=== PATIENT | male | born 1990 | race Hispanic/Latino ===

== ENCOUNTER 2016-12-13 05:30 | Emergency (ER) | payer SELFPAY ==
[2016-12-13] MEDS ORDERED: Ketorolac Tromethamine 60 MG/2 ML VIAL ONE (06:31)
== END 2016-12-13 06:35 | disposition home or self-care (01) ==
LOC: ERS 05:30
DX: M54.5 Low back pain (principal); F17.210 Nicotine dependence, cigarettes, uncomplicated
CPT/HCPCS: 99283; J1885

== ENCOUNTER 2017-01-25 09:21 | Day surgery (SDC) | payer SELFPAY ==
[2017-01-25 10:45] LABS: #Basophils 0.1 thou/uL (0.0-0.2); #Lymphocytes 1.5 thou/uL (1.20-3.40); #Monocytes 0.5 thou/uL (0.11-0.59); #Neutrophils 6.4 thou/uL (1.40-6.50); %Basophils 0.7 % (0.0-1.0); %Eosinophils 0.2 % (0.0-10.0); %Lymphocytes 17.6 % (21.0-51.0); %Monocytes 6.1 % (0.0-10.0); Hematocrit 44.6 % (42.0-52.0); Mean Platelet Volume 8.4 fL (7.4-10.4); Red Blood Cell (RBC) Count 4.64 mill/uL (4.70-6.10); White Blood Cell (WBC) Count 8.5 thou/uL (4.8-10.8)
[2017-01-25 10:56] LABS: ALT (SGPT) 47 U/L (8-55); AST (SGOT) 21 U/L (5-34); Alkaline Phosphatase 66 U/L (40-150); Anion Gap 10 mmol/L (10-20); BUN (Urea Nitrogen) 14 mg/dL (8.9-20.6); Bilirubin, Total 0.4 mg/dL (0.2-1.2); Calc. Creatinine Clearance 0 mL/min (70-130); Calcium 9.2 mg/dL (7.8-10.44); Carbon Dioxide 29 mmol/L (22-29); Chloride 104 mmol/L (98-107); Estimated GFR-MDRD Greater than 90; Protein, Total 7.5 g/dL (6.0-8.3)
[2017-01-25 11:51] LABS: Bilirubin Negative (Negative); Blood, Urine Negative (Negative); Glucose, Urine (Dipstick) Negative (Negative); Ketone, Urine Negative (Negative); Nitrite Negative (Negative); Protein, Urine (Dipstick) Negative (Neg-Trace); Urobilinogen 0.2 mg/dL (0.2-1.0)
--- NOTE | 2017-01-25 12:23 | ULT ---
TUBERCULOSIS ULTRASOUND: HISTORY: A 26-year-old male with right upper quadrant and right flank pain. The gallbladder appears to be moderately distended with some diffuse echogenic material, evidence for extensive sludge. There is a 1.6 cm diameter calcific focus with shadowing which appears to be at o r within the neck of the gallbladder consistent with an obstructing calculus. Common bile duct is 0. 5 cm. There is no overt gallbladder wall thickening or pericholecystic fluid. The visualized liver, pancreas, and right kidney are unremarkable. IMPRESSION: Distention of the gallbladder with extensive debris throughout the gallbladder with a 1.6 cm diameter calcific focus in the region of the neck of the gallbladder casting a prominent shadow, evidence for a stone in the neck of the gallbladder. The technologist indicates positive Contreras's sign. Even th ough there is no significant gallbladder wall thickening or pericholecystic fluid, the distention of the gallbladder along with a positive Contreras's sign and stone in the neck of the gallbladder certainl y are concerning for acute cholecystitis. Consideration for a followup nuclear medicine hepatobiliar y scan for confirmation in that regard might be considered. No ductal dilatation. Findings were discussed with Dr. Atkins in the ER at 11:50 a.m. CODE CR POS: [facility]
--- NOTE | 2017-01-25 14:21 | RAD ---
PORTABLE UPRIGHT CHEST ONE VIEW: History: 26-year-old male with abdominal pain and right flank pain. FINDINGS: The heart size is normal. The lungs are clear. IMPRESSION: No acute intrathoracic disease. No evidence of pneumonia. Stable from prior study. POS: [facility]
[2017-01-25] MEDS ORDERED: Morphine 4 MG/ML VIAL ONE (15:14)
[2017-01-25] MEDS ORDERED: Ketorolac Tromethamine 30 MG/ML VIAL ONE (16:41)
[2017-01-25] MEDS ORDERED: Fentanyl 250 MCG/5 ML VIAL ONE (16:53)
[2017-01-25] MEDS ORDERED: Midazolam HCl 2 mg/2 ml Vial ONE (16:53)
[2017-01-25] MEDS ORDERED: Bupivacaine/Epinephrine 0.25% 30 ML VIAL ONE (16:57)
[2017-01-25] MEDS ORDERED: cefOXitin Sodium 2 GM, Syringe 1 ML in Sterile Water 10 ML SLOW IVP SCH (17:00)
[2017-01-25] MEDS ORDERED: Lidocaine 1% PF 5 ML VIAL ONE (17:27)
[2017-01-25] MEDS ORDERED: Ondansetron HCl/PF 4 MG/2 ML Vial ONE (17:27)
[2017-01-25] MEDS ORDERED: Glycopyrrolate 0.2 MG/ML 5 ML SYRINGE ONE (17:27)
[2017-01-25] MEDS ORDERED: Propofol 200 MG/20 ML VIAL ONE (17:27)
[2017-01-25] MEDS ORDERED: HYDROcodone/Acetaminophen 5/325 mg Tablet ONE (19:26)
--- NOTE | 2017-01-25 22:46 | HP ---
DATE: 01/25/2017 CHIEF COMPLAINT: Right upper quadrant pain. HISTORY OF PRESENT ILLNESS: This is a 26-year-old male who presents with a several month hi story of intermittent severe right upper quadrant pain mostly after heavy greasy fatty fried foods. The pain has become more severe and constant, seen in the emergency room where he was found to have a cute cholecystitis. Liver function tests are normal. Denies jaundice or pancreatitis. PAST MEDICAL HISTORY: Denies. PAST SURGICAL HISTORY: Denies. MEDICINES TAKEN DAILY: None. ALLERGIES: None. SOCIAL HISTORY: He smokes occasionally. No alcohol. REVIEW OF SYSTEMS: Ten system review of systems otherwise negative unless described above. PHYSICAL EXAMINATION: HEENT: Sclerae are anicteric. Oropharynx clear. NECK: No lymphadenopathy. CHEST: Clear. HEART: Regular rate and rhythm. ABDOMEN: Soft, tender right upper quadrant, localized guarding, no rebound, no abdominal or inguinal hernias. EXTREMITIES: No ischemia or edema to extremities. LABORATORY AND X-RAY FINDINGS: Liver function tests normal. White blood cell count is 8, hemoglobin 15, creatinine is 0.93. Ultrasound shows mild gallbladder wall thickening and gallstones. ASSESSMENT: Acute cholecystitis. PLAN: Laparoscopic cholecystectomy. Risks, benefits, alternatives discussed. He gives consent. We will do this today.
--- NOTE | 2017-01-26 01:14 | OP ---
DATE OF PROCEDURE: 01/25/2017 PREOPERATIVE DIAGNOSIS: Acute cholecystitis. POSTOPERATIVE DIAGNOSIS: Acute cholecystitis. PROCEDURE: Laparoscopic cholecystectomy. SURGEON: Tomás Jacobson M.D. ANESTHESIA: General. ESTIMATED BLOOD LOSS: Minimal. COMPLICATIONS: None. SPECIMEN: Gallbladder. FINDINGS: Cholecystitis. PROCEDURE IN DETAIL: The patient was taken to the Operating Room and laid supine on the Operating Ro om table. After general anesthetic was obtained, the abdomen was prepped and draped in a sterile fas hion. A curved incision was made below the umbilicus. Cautery was used to dissect down to the umbil ical fascia. Umbilical fascia was incised and held up using a Maximilian. The abdominal cavity was ente red using a Keely clamp. Holding stitch of Vicryl was placed on each side of the fascia. Romero tro car was placed. High-flow pneumoperitoneum was obtained. An upper midline 5-mm port and two right u pper quadrant 5-mm ports were placed under direct camera visualization. The gallbladder was retracte d from the gallbladder fossa. The peritoneum of the gallbladder was opened anteriorly and posteriorl y. The critical view triangle was seen showing only the cystic duct and cystic artery branching from medial to lateral. There were no other branching structures. Two clips were placed proximally on t he cystic duct and one laterally. It was cut using laparoscopic scissors. The cystic artery was jhony en in the same way. Electrocautery was then used to dissect the gallbladder out of the gallbladder f stanislav. The gallbladder was placed in an Endo catch bag and brought out through the Romero. There was no bleeding or bile in the liver bed. The cystic duct stump and cystic artery stump were intact wit hout evidence of extravasation or bleeding. All port sites were infiltrated using local anesthesia. All ports were removed under camera visualization. Pneumoperitoneum was let down. The Vicryl was u sed to close the fascial defect below the umbilicus. All incisions were irrigated and closed using 4 -0 Monocryl and DermaBond. The patient was en route to Recovery in stable condition. All instrument counts, needle counts and lap counts were correct.
== END 2017-01-25 19:48 | disposition home or self-care (01) ==
LOC: ERS 09:21 → SDC 15:50
PROVIDERS: ATTEND Surgery
PROC: 0FT44ZZ Resection of Gallbladder, Percutaneous Endoscopic Approach (ICD-10-PCS; principal; 2017-01-25)
DX: K80.12 Calculus of gallbladder with acute and chronic cholecystitis without obstruction (principal); F17.200 Nicotine dependence, unspecified, uncomplicated
CPT/HCPCS: 36415; 71010; 76705; 80053; 81003; 85025; 88304; 93005; 96361; 96374; 99406; A4216; J0131; J0694; J1885; J2001; J2250; J2270; J2405; J2704; J3010

== ENCOUNTER 2017-03-01 15:40 | Emergency (ER) | payer SELFPAY ==
[2017-03-01] MEDS ORDERED: Acetaminophen 500 MG TAB ONE (17:41)
[2017-03-01] MEDS ORDERED: Ondansetron ODT 4 MG TAB ONE (18:37)
== END 2017-03-01 19:13 | disposition home or self-care (01) ==
LOC: ERS 15:40
DX: J11.1 Influenza due to unidentified influenza virus with other respiratory manifestations (principal)
CPT/HCPCS: 99283; Q0162

== ENCOUNTER 2017-03-05 16:27 | Emergency (ER) | payer SELFPAY ==
[2017-03-05] MEDS ORDERED: Lidocaine 1% PF 5 ML VIAL ONE (17:05)
[2017-03-05] MEDS ORDERED: Azithromycin 250 MG TAB ONE (17:05)
[2017-03-05] MEDS ORDERED: cefTRIAXone\\ROCEPHIN 500 MG VIAL ONE (17:05)
--- NOTE | 2017-03-05 17:30 | RAD ---
PA AND LATERAL OF THE CHEST: INDICATION: Cough and fever. FINDINGS: There are patchy opacities within the lingula and right upper lobe suspicious for focal pneumonia. C holecystectomy clips are seen within the right upper quadrant. The cardiomediastinal silhouette is w ithin normal limits. IMPRESSION: Patchy opacities within the region of the lingula and right upper lobe suspicious for pneumonia. POS: [facility]
== END 2017-03-05 19:00 | disposition home or self-care (01) ==
LOC: ERS 16:27
DX: J18.9 Pneumonia, unspecified organism (principal)
CPT/HCPCS: 71020; 94640; 96372; J0696; J2001; J7620

== ENCOUNTER 2017-03-07 11:45 | Emergency (ER) | payer SELFPAY ==
--- NOTE | 2017-03-07 15:13 | RAD ---
PA AND ALTERAL VIEWS CHEST: HISTORY: Cough, pneumonia. FINDINGS: Comparison is made with the exam of 03/05/17. Patchy opacities in the lingula are again seen. There is increased prominence of the interstitial ma rkings. No pneumothoraces or pleural effusions are seen. POS: [facility]
== END 2017-03-07 14:15 | disposition home or self-care (01) ==
LOC: ERS 11:45
DX: J18.9 Pneumonia, unspecified organism (principal)
CPT/HCPCS: 71046

== ENCOUNTER 2017-03-09 09:13 | Emergency (ER) | payer SELFPAY | END 2017-03-09 10:05 | disposition home or self-care (01) | LOC: ERS 09:13 | DX: Z00.00 Encounter for general adult medical examination without abnormal findings (principal) | CPT/HCPCS: 99283 ==

== ENCOUNTER 2017-08-25 08:04 | Inpatient (IN) | payer OTHER, SELFPAY ==
[2017-08-25] MEDS ORDERED: Fentanyl 100 MCG/2 ML VIAL ONE ×6 (08:12→15:26)
[2017-08-25] MEDS ORDERED: CEFAZOLIN 1 GM VIAL ONE (08:12)
[2017-08-25] MEDS ORDERED: Adacel (T-DAP) 0.5 ML VIAL ONE (08:12)
[2017-08-25 08:45] LABS: #Basophils 0.1 thou/uL (0.0-0.2); #Lymphocytes 2.2 thou/uL (1.20-3.40); #Monocytes 0.9 thou/uL (0.11-0.59); #Neutrophils 14.1 thou/uL (1.40-6.50); %Basophils 0.3 % (0.0-1.0); %Eosinophils 0.2 % (0.0-10.0); %Lymphocytes 12.6 % (21.0-51.0); %Monocytes 5.2 % (0.0-10.0); %Neutrophils 81.6 % (42.0-75.0); Hemoglobin 14.5 g/dL (14.0-18.0); Mean Corpuscular HGB CONC 34.4 g/dL (32.0-36.0); Mean Corpuscular Hemoglobin 31.9 pg (27.0-31.0); Mean Corpuscular Volume 92.9 fL (78.0-98.0); Mean Platelet Volume 8.6 fL (7.4-10.4); Platelet Count 253 thou/uL (130-400); RBC Distribution Width 11.6 % (11.5-14.5); Red Blood Cell (RBC) Count 4.54 mill/uL (4.70-6.10); White Blood Cell (WBC) Count 17.3 thou/uL (4.8-10.8)
[2017-08-25 08:56] LABS: ALT (SGPT) 103 U/L (8-55); AST (SGOT) 96 U/L (5-34); Albumin 4.3 g/dL (3.5-5.0); Alkaline Phosphatase 69 U/L (40-150); Anion Gap 14 mmol/L (10-20); BUN (Urea Nitrogen) 11 mg/dL (8.9-20.6); Bilirubin, Total 0.8 mg/dL (0.2-1.2); Calc. Creatinine Clearance 0 mL/min (70-130); Carbon Dioxide 20 mmol/L (22-29); Chloride 108 mmol/L (98-107); Estimated GFR-MDRD 81; Globulin 2.7 g/dL (2.4-3.5); Glucose 177 mg/dL (70-105); Potassium 3.8 mmol/L (3.5-5.1); Sodium 138 mmol/L (136-145)
[2017-08-25 09:00] LABS: Troponin I Less than 0.010 ng/mL (< 0.028)
[2017-08-25] MEDS ORDERED: Lidocaine 1% w/Epinephrine 1:100K 20 ML VIAL ONE (09:00)
[2017-08-25] MEDS ORDERED: CEFAZOLIN/Water 2 GM/20 ML SYRINGE SLOW IVP SCH (09:15)
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
--- NOTE | 2017-08-25 09:41 | RAD ---
FRONTAL AND LATERAL IMAGING OF LEFT TIBIA AND FIBULA: Date: 08/25/17 COMPARISON: None. HISTORY: Pain. FINDINGS: There is an obliquely oriented fracture of the proximal left tibia laterally which extends into the r egion of the tibial plateau. This is incompletely assessed on this examination. Dedicated imaging of the left knee advised. IMPRESSION: Intraarticular fracture of proximal left tibia extending into the midline tibial plateau. Dedicated r ight knee imaging advised. POS: [facility]
[2017-08-25 09:53] LABS: Bilirubin Negative (Negative); Blood, Urine Large (Negative); Clarity CLEAR (Clear); Glucose, Urine (Dipstick) 250 mg/dL (Negative); Leukocyte Negative (Negative); Nitrite Negative (Negative); Protein, Urine (Dipstick) 30 mg/dL (Neg-Trace)
[2017-08-25 09:55] LABS: Bacteria/HPF None Seen HPF (None Seen)
[2017-08-25 09:58] LABS: Pathc Cast-AUWi Flag 9.15 (0-2.49); Specific Gravity, Urine 1.057 (1.002-1.036)
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
--- NOTE | 2017-08-25 10:11 | RAD ---
LEFT FEMUR TWO VIEWS: HISTORY: Left thigh pain and deformity. FINDINGS: There is a fracture involving the mid shaft of the left femur with a large, 10 cm fracture fragment, displaced medially. There is also a comminuted fracture involving the distal aspect of the femur, wi th involvement of the lateral condyles. This demonstrates mild displacement. POS: [facility]
[2017-08-25 10:14] LABS: Manual Microscopic Reviewed? No Path Casts Seen; Renal Epithelial None Seen HPF (0-3); Transitional Epithelial NONE SEEN HPF (0-3)
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
[2017-08-25 10:32] LABS: Hyaline Casts/LPF 0-3 HYALINE CAST LPF (0-3 Hyaline)
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
[2017-08-25] MEDS ORDERED: Dextrose 5% in Water 1,000 ML IV PRN (10:48)
[2017-08-25] MEDS ORDERED: hydrALAZINE 20 MG/ML VIAL SLOW IVP PRN (10:48)
[2017-08-25] MEDS ORDERED: Ondansetron HCl/PF 4 MG/2 ML Vial IVP PRN ×2 (10:48→16:52)
[2017-08-25] MEDS ORDERED: HYDROcodone/Acetaminophen 10/325 mg Tablet PO PRN ×2 (10:48)
[2017-08-25] MEDS ORDERED: Promethazine HCl 25 MG/ML VIAL IM PRN ×3 (10:48→16:52)
[2017-08-25] MEDS ORDERED: Ondansetron ODT 4 MG TAB PO PRN (10:48)
[2017-08-25] MEDS ORDERED: Dextrose 50% Abboject 50 ML SYRINGE SLOW IVP PRN (10:48)
--- NOTE | 2017-08-25 10:48 | CT ---
CT CHEST WITH IV CONTRAST: CT ABDOMEN WITH IV CONTRAST: CT PELVIS WITH IV CONTRAST: CORONAL AND SAGITTAL REFORMATIONS OF THE THORACOLUMBAR SPINE: FINDINGS: No evidence of mediastinal hematoma or intimal flap in the aorta is seen to suggest transection. No pneumothoraces, pulmonary contusions, or pleural or pericardial effusions are seen. There are depend ent changes in the posterior lung bases. There are postop changes of a cholecystectomy. A small hiatal hernia is present. The liver, spleen, pancreas, left adrenal glands, and kidneys are intact. There is a small contusion with a small amou nt of hemorrhage surrounding the right adrenal gland and IVC. No free air is noted. The urinary bladder is intact. A small left fat-containing inguinal hernia is present. No fracture or subluxation is seen in the thoracolumbar spine. IMPRESSION: 1. No CT evidence of acute intrathoracic injury. 2. Small right adrenal contusion. Report was called over the telephone to Dr. Murillo at 9:16 a.m. CODE NISHA POS: [facility]
[2017-08-25] MEDS ORDERED: Bacitracin Zinc 1 Packet TOP SCH (11:45)
[2017-08-25] MEDS ORDERED: Midazolam HCl 2 mg/2 ml Vial ONE (11:52)
[2017-08-25] MEDS ORDERED: CEFAZOLIN/Water 2 GM/20 ML SYRINGE ONE (12:24)
[2017-08-25] MEDS ORDERED: HYDROmorphone 0.5 MG/0.5 ML SYRINGE ONE (15:27)
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
[2017-08-25] MEDS ORDERED: Bacitracin Zinc Ointment 30 gm TUBE ONE (16:14)
[2017-08-25] MEDS ORDERED: SUGAMMADEX SODIUM 200 MG/2 ML VIAL ONE (16:29)
--- NOTE | 2017-08-25 16:33 | RAD ---
LEFT FEMUR 2 VIEWS: Date: 08/25/17 HISTORY: Intramedullary nail left femur. Open reduction and internal fixation. COMPARISON: None. FINDINGS: There is satisfactory appearance of left plate and screw fixation of the femoral fracture. IMPRESSION: Satisfactory alignment post fixation. POS: REENA
[2017-08-25] MEDS ORDERED: Meperidine HCl/PF 25 MG/ML VIAL ONE (16:35)
--- NOTE | 2017-08-25 16:35 | RAD ---
2 INTRAOPERATIVE FLUOROSCOPIC IMAGES LEFT KNEE: Date: 08/25/17 HISTORY: Intramedullary nail left tibia. Internal fixation left knee. FINDINGS: There is partial visualization of a lateral plate and multiple screws transfixing the fracture of the distal femur. There is a lateral plate and multiple screws transfixing the fracture involving the pr oximal left tibia. No hardware complication is seen. IMPRESSION: Postsurgical changes related to internal fixation of the distal femur and proximal tibia. Postsurgica l changes of the femur are incompletely imaged on this exam. POS: REENA
[2017-08-25] MEDS ORDERED: Promethazine HCl 25 MG/ML VIAL SLOW IVP PRN (16:52)
[2017-08-25] MEDS ORDERED: Meperidine HCl/PF 25 MG/ML VIAL SLOW IVP PRN (16:52)
[2017-08-25] MEDS: Acetaminophen 1,000 MG in Premix Bag 1 BAG IVPB SCH ×3 (18:44→23:50)
[2017-08-25] MEDS: Ketorolac Tromethamine 30 MG/ML VIAL IVP SCH ×4 (18:45→23:50)
[2017-08-25] MEDS: Sodium Chloride 0.9% 1,000 ML IV SCH ×2 (18:48→22:03)
[2017-08-25] MEDS: Oxazepam 10 MG CAP PO SCH ×2 (18:59→22:04)
[2017-08-25] MEDS: Famotidine 20 MG TAB PO SCH (20:02)
[2017-08-25] MEDS: CEFAZOLIN/Water 2 GM/20 ML SYRINGE SLOW IVP SCH (22:05)
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
[2017-08-26] MEDS ORDERED: Rib Fracture Protocol PO SCH (02:30)
[2017-08-26] MEDS: Cyclobenzaprine 10 MG TAB PO PRN (02:44)
[2017-08-26] MEDS: Sodium Chloride 0.9% 1,000 ML IV SCH (03:45)
[2017-08-26 05:35] LABS: Anion Gap 12 mmol/L (10-20); BUN (Urea Nitrogen) 10 mg/dL (8.9-20.6); Calc. Creatinine Clearance 0 mL/min (70-130); Calcium 7.7 mg/dL (7.8-10.44); Carbon Dioxide 22 mmol/L (22-29); Chloride 108 mmol/L (98-107); Estimated GFR-MDRD Greater than 90; Glucose 143 mg/dL (70-105); Magnesium 1.5 mg/dL (1.6-2.6); Phosphorus 2.6 mg/dL (2.3-4.7); Potassium 4.1 mmol/L (3.5-5.1); Sodium 138 mmol/L (136-145)
[2017-08-26] MEDS: CEFAZOLIN/Water 2 GM/20 ML SYRINGE SLOW IVP SCH (05:59)
[2017-08-26] MEDS: traMADol HCl 50 MG TAB PO SCH ×3 (06:00→18:22)
[2017-08-26] MEDS: Acetaminophen 500 MG TAB PO SCH ×3 (06:00→18:22)
[2017-08-26] MEDS: Ibuprofen 800 MG TAB PO SCH ×3 (06:00→18:22)
[2017-08-26 06:01] LABS: #Lymphocytes 1.2 thou/uL (1.20-3.40); #Monocytes 1.1 thou/uL (0.11-0.59); #Neutrophils 6.8 thou/uL (1.40-6.50); %Basophils 0.3 % (0.0-1.0); %Eosinophils 0.2 % (0.0-10.0); %Lymphocytes 13.1 % (21.0-51.0); %Monocytes 11.9 % (0.0-10.0); %Neutrophils 74.6 % (42.0-75.0); Hemoglobin 9.3 g/dL (14.0-18.0); Mean Corpuscular HGB CONC 34.1 g/dL (32.0-36.0); Mean Corpuscular Volume 93.8 fL (78.0-98.0); Mean Platelet Volume 9.1 fL (7.4-10.4); Platelet Count 155 thou/uL (130-400); RBC Distribution Width 11.7 % (11.5-14.5); Red Blood Cell (RBC) Count 2.92 mill/uL (4.70-6.10); White Blood Cell (WBC) Count 9.2 thou/uL (4.8-10.8)
[2017-08-26] MEDS: Oxazepam 10 MG CAP PO SCH ×3 (09:24→21:49)
[2017-08-26] MEDS: Gabapentin 300 MG CAP PO SCH ×3 (09:24→21:49)
[2017-08-26] MEDS: Enoxaparin Sodium 40 MG/0.4 ML SYRINGE SC SCH (09:24)
[2017-08-26] MEDS: Famotidine 20 MG TAB PO SCH ×2 (09:25→21:49)
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
[2017-08-26 12:48] VITALS: BMI 38.0
[2017-08-26] MEDS: Ferrous Sulfate 325 MG TAB PO SCH (18:22)
[2017-08-26] MEDS: Senokot S 8.6-50 MG TAB PO SCH (21:49)
[2017-08-26] MEDS: Ascorbic Acid 500 mg Chewable Tablet PO SCH (21:50)
[2017-08-27] MEDS: traMADol HCl 50 MG TAB PO SCH ×2 (00:06→05:32)
[2017-08-27] MEDS: Acetaminophen 500 MG TAB PO SCH ×2 (00:06→05:31)
[2017-08-27] MEDS: Ibuprofen 800 MG TAB PO SCH ×3 (00:06→11:53)
[2017-08-27 04:55] LABS: #Lymphocytes 1.5 thou/uL (1.20-3.40); #Monocytes 0.8 thou/uL (0.11-0.59); #Neutrophils 5.2 thou/uL (1.40-6.50); %Basophils 0.2 % (0.0-1.0); %Eosinophils 0.1 % (0.0-10.0); %Lymphocytes 20.1 % (21.0-51.0); %Monocytes 10.6 % (0.0-10.0); Hemoglobin 7.9 g/dL (14.0-18.0); Mean Corpuscular HGB CONC 34.8 g/dL (32.0-36.0); Mean Corpuscular Hemoglobin 32.5 pg (27.0-31.0); Mean Corpuscular Volume 93.3 fL (78.0-98.0); Mean Platelet Volume 8.6 fL (7.4-10.4); Platelet Count 146 thou/uL (130-400); RBC Distribution Width 11.8 % (11.5-14.5); Red Blood Cell (RBC) Count 2.44 mill/uL (4.70-6.10); White Blood Cell (WBC) Count 7.6 thou/uL (4.8-10.8)
[2017-08-27 05:44] LABS: Magnesium 1.9 mg/dL (1.6-2.6); Phosphorus 1.8 mg/dL (2.3-4.7)
[2017-08-27 06:09] LABS: Potassium 3.6 mmol/L (3.5-5.1)
[2017-08-27] MEDS ORDERED: Potassium Phosphate 30 MMOL in Sodium Chloride 0.9% 500 ML IVPB SCH (08:15)
[2017-08-27] MEDS: Enoxaparin Sodium 40 MG/0.4 ML SYRINGE SC SCH (08:44)
[2017-08-27] MEDS: Ascorbic Acid 500 mg Chewable Tablet PO SCH (08:45)
[2017-08-27] MEDS: Famotidine 20 MG TAB PO SCH (08:45)
[2017-08-27] MEDS: Senokot S 8.6-50 MG TAB PO SCH (08:45)
[2017-08-27] MEDS: Ferrous Sulfate 325 MG TAB PO SCH (08:46)
[2017-08-27] MEDS: Oxazepam 10 MG CAP PO SCH ×2 (08:46→16:30)
[2017-08-27] MEDS: Gabapentin 300 MG CAP PO SCH ×2 (08:47→16:29)
[2017-08-27] MEDS ORDERED: Acetaminophen/Codeine 30-300mg Tablet PO PRN ×2 (08:58→08:59)
[2017-08-27] MEDS ORDERED: Polyethylene Glycol 3350 17 GM Packet PO SCH (09:00)
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
[2017-08-27 11:08] VITALS: BP 127/85; TEMP 98.1
[2017-08-27] MEDS: Cyclobenzaprine 10 MG TAB PO PRN (11:53)
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
== END 2017-08-27 15:09 | disposition home or self-care (01) | DRG 956 ==
LOC: ERS 08:04 → SURG B 09:07
PROVIDERS: ADMIT Surgery; ATTEND Surgery
PROC: 0QS904Z Reposition Left Femoral Shaft with Internal Fixation Device, Open Approach (ICD-10-PCS; principal; 2017-08-25)
PROC: 0QSH04Z Reposition Left Tibia with Internal Fixation Device, Open Approach (ICD-10-PCS; 2017-08-25)
PROC: 0QSC04Z Reposition Left Lower Femur with Internal Fixation Device, Open Approach (ICD-10-PCS; 2017-08-25)
PROC: 09Q1XZZ Repair Left External Ear, External Approach (ICD-10-PCS; 2017-08-25)
DX: S72.302A Unspecified fracture of shaft of left femur, initial encounter for closed fracture (principal); S37.812A Contusion of adrenal gland, initial encounter; S06.0X9A Concussion with loss of consciousness of unspecified duration, initial encounter; S82.142A Displaced bicondylar fracture of left tibia, initial encounter for closed fracture; S72.412A Displaced unspecified condyle fracture of lower end of left femur, initial encounter for closed fracture; V43.62XA Car passenger injured in collision with other type car in traffic accident, initial encounter; Y92.410 Unspecified street and highway as the place of occurrence of the external cause; D50.0 Iron deficiency anemia secondary to blood loss (chronic); S01.312A Laceration without foreign body of left ear, initial encounter
CPT/HCPCS: 12015; 36415; 51702; 70450; 71260; 72125; 74177; 76001; 80048; 80053; 81003; 81015; 82553; 83735; 84100; 84132; 84484; 85025; 86850; 86900; 86901; 90471; 90715; 94640; 96365; 96374; C1713; C1769; G0390; G8978-GP-CL; G8979-GP-CJ; G8987-GO-CJ; G8988-GO-CI; J0131; J0690; J1170; J1650; J1885; J2001; J2175; J2250; J3010; J7050; J7620

== ENCOUNTER 2017-08-30 11:24 | Emergency (ER) | payer OTHER, SELFPAY ==
[2017-08-30 12:45] LABS: #Basophils 0.1 thou/uL (0.0-0.2); #Eosinphils 0.1 thou/uL (0.0-0.7); #Monocytes 0.5 thou/uL (0.11-0.59); #Neutrophils 5.5 thou/uL (1.40-6.50); %Basophils 1.1 % (0.0-1.0); %Eosinophils 0.8 % (0.0-10.0); %Lymphocytes 24.8 % (21.0-51.0); %Neutrophils 67.2 % (42.0-75.0); Hemoglobin 8.8 g/dL (14.0-18.0); Mean Corpuscular HGB CONC 35.3 g/dL (32.0-36.0); Mean Corpuscular Hemoglobin 32.6 pg (27.0-31.0); Mean Corpuscular Volume 92.3 fL (78.0-98.0); Mean Platelet Volume 7.6 fL (7.4-10.4); Platelet Count 308 thou/uL (130-400); RBC Distribution Width 12.4 % (11.5-14.5); Red Blood Cell (RBC) Count 2.69 mill/uL (4.70-6.10); White Blood Cell (WBC) Count 8.1 thou/uL (4.8-10.8)
[2017-08-30 13:04] LABS: ALT (SGPT) 193 U/L (8-55); AST (SGOT) 151 U/L (5-34); Alkaline Phosphatase 107 U/L (40-150); Anion Gap 15 mmol/L (10-20); BUN (Urea Nitrogen) 12 mg/dL (8.9-20.6); Bilirubin, Total 1.8 mg/dL (0.2-1.2); Calc. Creatinine Clearance 0 mL/min (70-130); Calcium 9.3 mg/dL (7.8-10.44); Carbon Dioxide 24 mmol/L (22-29); Chloride 102 mmol/L (98-107); Estimated GFR-MDRD Greater than 90; Glucose 98 mg/dL (70-105); Potassium 3.2 mmol/L (3.5-5.1); Sodium 138 mmol/L (136-145)
[2017-08-30] MEDS ORDERED: ISOVUE-370 76%-LOCM 1 ML ONE (13:10)
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
--- NOTE | 2017-08-30 16:30 | CT ---
CT OF ABDOMEN AND PELVIS: Date: 08-30-17 Comparison: 08-25-17 History: Injury, trauma, pain. Technique: Serial axial CT imaging is obtained at 5 mm intervals from lung bases through pubic symphy sis with IV contrast. Coronal reformatted imaging obtained. FINDINGS: Mild increased linear density in the right lung base suggesting volume loss, less conspicuous than on prior imaging. Cholecystectomy clips are present. No free intraperitoneal air is noted. The liver, spleen, pancreas, adrenal glands, and kidneys appear grossly unremarkable. Lack of oral contrast limits assessment of the bowel. There is no evidence for bowel inflammatory change or bowel obstruction. There is trace free fluid in the pelvic cul-de-sac. There is minimal increased density along the left paracolic gutter, new and nonspecific. Review of the osseous structures demonstrate no acute fracture or evidence of dislocation. There is i ncompletely imaged proximal left frontal hardware present. The findings suggesting right adrenal hematoma on the prior examination no longer seen. There is stra nding of the subcutaneous fat laterally within the region of the left hip. IMPRESSION: Nonspecific new trace free fluid in the pelvis. There is mild increased density within the paracolic gutter on the left, significance uncertain. No evidence for bowel obstruction. POS: H
== END 2017-08-30 16:58 | disposition home or self-care (01) ==
LOC: ERS 11:24
DX: M79.605 Pain in left leg (principal); R53.1 Weakness; Z79.899 Other long term (current) drug therapy
CPT/HCPCS: 36415; 71275; 74177; 80053; 85025; 87040; 93005; 96361; 96374; J2270

== ENCOUNTER 2018-07-10 04:05 | Emergency (ER) | payer OTHER, SELFPAY ==
--- NOTE | 2018-07-10 07:53 | RAD ---
2 view chest: CLINICAL HISTORY: Cough/Fever COMPARISON: None FINDINGS: Mild patchy left basilar density. Cardiac silhouette is normal in size. No acute osseous abnormality. IMPRESSION: Mild patchy left basilar density which could relate to slight prominence of perihilar vasculature, at electasis or pneumonitis. Consider follow-up 2 view chest for further evaluation.
== END 2018-07-10 05:05 | disposition home or self-care (01) ==
LOC: ERS 04:05
DX: J18.9 Pneumonia, unspecified organism (principal)
CPT/HCPCS: 71045; 87804

== ENCOUNTER 2018-07-11 07:33 | Emergency (ER) | payer SELFPAY | END 2018-07-11 07:55 | disposition home or self-care (01) | LOC: ERS 07:33 | DX: J18.9 Pneumonia, unspecified organism (principal); R04.2 Hemoptysis; Z79.899 Other long term (current) drug therapy | CPT/HCPCS: 99283 ==

== ENCOUNTER 2018-07-18 07:55 | Emergency (ER) | payer SELFPAY ==
--- NOTE | 2018-07-18 09:43 | RAD ---
EXAM: CHEST TWO VIEWS: History: Right sided rib pain. Comparison: 07-10-18 FINDINGS: Heart size is normal. The lungs are clear. No pneumonia, edema, pleural effusion or other acute proce ss. IMPRESSION: No acute intrathoracic disease. POS: C
== END 2018-07-18 09:50 | disposition home or self-care (01) ==
LOC: ERS 07:55
DX: R05 Cough (principal); Z79.899 Other long term (current) drug therapy
CPT/HCPCS: 71046

== ENCOUNTER 2018-11-29 20:33 | Emergency (ER) | payer SELFPAY ==
[2018-11-29] MEDS ORDERED: Acetaminophen 500 MG TAB ONE (22:06)
--- NOTE | 2018-11-29 22:27 | CT ---
Exam: Head CT without contrast HISTORY: Headache. Vision changes. COMPARISON: 08/25/2017 FINDINGS: Hemorrhage: No intraparenchymal hemorrhage or extra-axial hematoma. Brain parenchyma: Cortical curtis-white matter differentiation is preserved. No mass effect or midline shift. Basilar cisterns are patent. Ventricular system: Ventricles and sulci are patent and symmetric. Calvarium: Intact. Sinuses and mastoid air cells: Adequate aeration. IMPRESSION: No acute intracranial process.
[2018-11-29 22:43] LABS: #Eosinphils 0.1 thou/uL (0.0-0.7); #Lymphocytes 2.5 thou/uL (1.20-3.40); #Monocytes 0.8 thou/uL (0.11-0.59); #Neutrophils 4.6 thou/uL (1.40-6.50); %Basophils 0.5 % (0.0-1.0); %Eosinophils 0.8 % (0.0-10.0); %Lymphocytes 31.8 % (21.0-51.0); %Monocytes 9.4 % (0.0-10.0); %Neutrophils 57.5 % (42.0-75.0); Hemoglobin 14.7 g/dL (14.0-18.0); Mean Corpuscular HGB CONC 33.2 g/dL (32.0-36.0); Mean Corpuscular Volume 93.3 fL (78.0-98.0); Mean Platelet Volume 8.9 fL (7.4-10.4); Platelet Count 241 thou/uL (130-400); Red Blood Cell (RBC) Count 4.74 mill/uL (4.70-6.10)
[2018-11-29 22:54] LABS: ALT (SGPT) 63 U/L (8-55); AST (SGOT) 20 U/L (5-34); Albumin 4.3 g/dL (3.5-5.0); Alkaline Phosphatase 72 U/L (40-110); Anion Gap 13 mmol/L (10-20); BUN (Urea Nitrogen) 12 mg/dL (8.9-20.6); Bilirubin, Total 0.3 mg/dL (0.2-1.2); Calc. Creatinine Clearance 0 mL/min (70-130); Calcium 9.3 mg/dL (7.8-10.44); Carbon Dioxide 23 mmol/L (22-29); Chloride 108 mmol/L (98-107); Estimated GFR-MDRD 75; Globulin 2.8 g/dL (2.4-3.5); Glucose 104 mg/dL (70-105); Potassium 3.9 mmol/L (3.5-5.1); Protein, Total 7.1 g/dL (6.0-8.3); Sodium 140 mmol/L (136-145)
== END 2018-11-30 00:15 | disposition home or self-care (01) ==
LOC: ERS 20:33
DX: R51 Headache (principal)
CPT/HCPCS: 36415; 70450; 80053; 85025; 93005

== ENCOUNTER 2019-02-25 18:01 | Emergency (ER) | payer SELFPAY ==
[2019-02-25 18:30] LABS: #Lymphocytes 2.2 thou/uL (1.20-3.40); #Monocytes 0.5 thou/uL (0.11-0.59); #Neutrophils 4.6 thou/uL (1.40-6.50); %Basophils 0.6 % (0.0-1.0); %Eosinophils 0.3 % (0.0-10.0); %Lymphocytes 29.9 % (21.0-51.0); %Monocytes 6.3 % (0.0-10.0); %Neutrophils 62.9 % (42.0-75.0); Hemoglobin 15.6 g/dL (14.0-18.0); Mean Corpuscular HGB CONC 34.8 g/dL (32.0-36.0); Mean Corpuscular Hemoglobin 31.9 pg (27.0-31.0); Mean Corpuscular Volume 91.6 fL (78.0-98.0); Mean Platelet Volume 8.3 fL (7.4-10.4); Platelet Count 341 thou/uL (130-400); RBC Distribution Width 11.2 % (11.5-14.5); Red Blood Cell (RBC) Count 4.88 mill/uL (4.70-6.10); White Blood Cell (WBC) Count 7.4 thou/uL (4.8-10.8)
--- NOTE | 2019-02-25 18:52 | RAD ---
CHEST ONE VIEW: Comparison: 07-10-18 History: Chest pain FINDINGS: Heart size and mediastinum are within normal limits. The lungs are clear of infiltrate. No significan t bony findings. IMPRESSION: No active intrathoracic disease. POS: [facility]
[2019-02-25 18:54] LABS: ALT (SGPT) 60 U/L (8-55); AST (SGOT) 24 U/L (5-34); Albumin 4.5 g/dL (3.5-5.0); Alkaline Phosphatase 87 U/L (40-110); Anion Gap 15 mmol/L (10-20); BUN (Urea Nitrogen) 11 mg/dL (8.9-20.6); Bilirubin, Total 0.4 mg/dL (0.2-1.2); CK (CPK) 141 U/L (30-200); Calc. Creatinine Clearance 0 mL/min (70-130); Calcium 9.1 mg/dL (7.8-10.44); Carbon Dioxide 24 mmol/L (22-29); Chloride 105 mmol/L (98-107); Estimated GFR-MDRD 86; Globulin 3.2 g/dL (2.4-3.5); Glucose 102 mg/dL (70-105); Lipase 27 U/L (8-78); Potassium 3.5 mmol/L (3.5-5.1); Protein, Total 7.7 g/dL (6.0-8.3); Sodium 140 mmol/L (136-145)
--- NOTE | 2019-02-27 15:39 | EKG ---
Test Reason : Blood Pressure : / mmHG Vent. Rate : 111 BPM Atrial Rate : 111 BPM P-R Int : 138 ms QRS Dur : 084 ms QT Int : 310 ms P-R-T Axes : 032 009 018 degrees QTc Int : 421 ms Sinus tachycardia Otherwise normal ECG Confirmed by ETHAN OBRIEN DO ([id number]), film and video editor ALIYA RUBIO ([id number]) on 02/27/2019 3:39:42 PM Referred By: Confirmed By:ETHAN OBRIEN DO
--- NOTE | 2019-02-27 15:40 | EKG ---
Test Reason : Blood Pressure : / mmHG Vent. Rate : 083 BPM Atrial Rate : 083 BPM P-R Int : 136 ms QRS Dur : 086 ms QT Int : 348 ms P-R-T Axes : 033 032 021 degrees QTc Int : 408 ms Normal sinus rhythm Normal ECG Confirmed by ETAHN OBRIEN DO ([id number]), web content editor ALIYA RUBIO ([id number] on 02/27/2019 3:39:45 PM Referred By: Confirmed By:ETHAN OBRIEN DO
== END 2019-02-25 20:25 | disposition home or self-care (01) ==
LOC: ERS 18:01
DX: R07.9 Chest pain, unspecified (principal); F12.10 Cannabis abuse, uncomplicated
CPT/HCPCS: 36415; 71045; 80053; 82550; 83690; 84484; 85025; 93005; 94760

== ENCOUNTER 2019-04-04 11:06 | Day surgery (SDC) | payer OTHER ==
[2019-04-03 09:42] VITALS: BMI 38.6
[~2019-04-04 11:06] MED LIST: Dexamethasone 20 MG/5 ML VIAL ONE; Ketorolac Tromethamine 30 MG/ML VIAL ONE; Lidocaine 1% PF 5 ML VIAL ONE; Ondansetron PF 4 MG/2 ML Vial ONE; PROPOFOL 200 MG/20 ML VIAL ONE; ePHEDrine/0.9% NaCl/PF SYRINGE 50 mg/10 ml ONE
[2019-04-04] MEDS ORDERED: Bupivacaine 0.25% HCL 30 ML VIAL ONE (11:51)
[2019-04-04] MEDS ORDERED: Lidocaine 1% w/Epinephrine 1:100K 20 ML VIAL ONE (11:51)
[2019-04-04] MEDS ORDERED: Bupivacaine PF 0.5% 30 ML VIAL ONE (11:51)
[2019-04-04] MEDS ORDERED: Fentanyl 100 MCG/2 ML VIAL ONE ×2 (12:48→14:27)
[2019-04-04] MEDS ORDERED: Midazolam HCl 2 mg/2 ml Vial ONE ×2 (12:48)
[2019-04-04] MEDS ORDERED: HYDROcodone/Acetaminophen 5/325 mg Tablet ONE (15:24)
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
== END 2019-04-04 15:50 | disposition home or self-care (01) ==
LOC: SDC 11:06
PROVIDERS: ATTEND Orthopaedic Surgery
PROC: 0SBD4ZZ Excision of Left Knee Joint, Percutaneous Endoscopic Approach (ICD-10-PCS; principal; 2019-04-04)
PROC: 0MNP0ZZ Release Left Knee Bursa and Ligament, Open Approach (ICD-10-PCS; principal; 2019-04-04)
DX: M94.262 Chondromalacia, left knee (principal); M65.9 Synovitis and tenosynovitis, unspecified
CPT/HCPCS: J0690; J1100; J1885; J2001; J2250; J2405; J2704; J3010; S0020

== ENCOUNTER 2019-04-09 09:25 | Emergency (ER) | payer SELFPAY ==
--- NOTE | 2019-04-09 10:25 | ULT ---
DOPPLER VENOUS ULTRASOUND OF LEFT LOWER EXTREMITY: Date: 04/09/2019 INDICATION: History of left lower extremity pain. TECHNIQUE: Santiago scale, color Doppler, and vascular duplex with spectral analysis was performed of the deep venou s structures of the left lower extremity. The common femoral vein, superficial femoral vein, proximal greater saphenous vein, proximal greater profunda vein, popliteal, and posterior tibial veins were a ssessed. FINDINGS: Normal compression, flow, and augmentation was seen within the deep venous structures of the left low er extremity. IMPRESSION: No evidence of deep venous thrombosis in the left lower extremity. POS: CET
== END 2019-04-09 12:15 | disposition home or self-care (01) ==
LOC: ERS 09:25
DX: G89.18 Other acute postprocedural pain (principal); M25.562 Pain in left knee

== ENCOUNTER 2019-06-13 01:10 | Emergency (ER) | payer SELFPAY ==
--- NOTE | 2019-06-13 07:04 | RAD ---
SINGLE VIEW CHEST: Date: 06/13/2019 COMPARISON: 02/25/2019. HISTORY: Chest pain for a week. FINDINGS: Single view of the chest shows a normal sized cardiomediastinal silhouette. There is no evidence of c onsolidation, mass, or pleural effusion. The bones are unremarkable. IMPRESSION: No evidence of acute cardiopulmonary disease. POS: C
--- NOTE | 2019-06-14 14:50 | EKG ---
Test Reason : Blood Pressure : / mmHG Vent. Rate : 084 BPM Atrial Rate : 084 BPM P-R Int : 140 ms QRS Dur : 100 ms QT Int : 362 ms P-R-T Axes : 031 002 006 degrees QTc Int : 427 ms Normal sinus rhythm Normal ECG Confirmed by PATITO WHEAT DO ([id number]), order editor ELDA PETERS ([id number]) on 06/14/2019 2:50:08 PM Referred By: Confirmed By:PATITO WHEAT DO
== END 2019-06-13 02:10 | disposition home or self-care (01) ==
LOC: ERS 01:10
DX: R07.9 Chest pain, unspecified (principal); Z71.6 Tobacco abuse counseling
CPT/HCPCS: 71045; 93005; 99406

== ENCOUNTER 2020-08-07 14:33 | Emergency (ER) | payer SELFPAY ==
[2020-08-07] MEDS ORDERED: Acetaminophen 500 MG TAB ONE (16:40)
[2020-08-07] MEDS ORDERED: Ketorolac Tromethamine 30 MG/ML VIAL ONE (16:40)
== END 2020-08-07 17:10 | disposition home or self-care (01) ==
LOC: ERS 14:33
DX: S16.1XXA Strain of muscle, fascia and tendon at neck level, initial encounter (principal); R51.9 Headache, unspecified; M62.838 Other muscle spasm; V89.2XXA Person injured in unspecified motor-vehicle accident, traffic, initial encounter
CPT/HCPCS: 70450; 72125; 96372; J1885

== ENCOUNTER 2022-05-08 12:22 | Emergency (ER) | payer SELFPAY ==
[2022-05-08 12:47] LABS: #Basophils 0.1 thou/uL (0.0-0.2); #Monocytes 0.6 thou/uL (0.11-0.59); #Neutrophils 4.5 thou/uL (1.40-6.50); %Basophils 1.1 % (0.0-1.0); %Eosinophils 0.4 % (0.0-10.0); %Lymphocytes 36.5 % (21.0-51.0); Hemoglobin 15.2 g/dL (14.0-18.0); Mean Corpuscular HGB CONC 33.8 g/dL (32.0-36.0); Mean Corpuscular Hemoglobin 32.6 pg (27.0-31.0); Mean Corpuscular Volume 96.3 fl (78.0-98.0); Mean Platelet Volume 8.7 fL (7.4-10.4); Platelet Count 261 10x3/uL (130-400); RBC Distribution Width 11.6 % (11.5-14.5); Red Blood Cell (RBC) Count 4.67 mill/uL (4.70-6.10); White Blood Cell (WBC) Count 8.1 10x3/uL (4.8-10.8)
[2022-05-08 13:12] LABS: ALT (SGPT) 50 U/L (8-55); AST (SGOT) 24 U/L (5-34); Albumin 4.7 g/dL (3.5-5.0); Alkaline Phosphatase 85 U/L (40-110); Anion Gap 13 mmol/L (10-20); BUN (Urea Nitrogen) 14 mg/dL (8.9-20.6); Bilirubin, Total 0.3 mg/dL (0.2-1.2); Calc. Creatinine Clearance 0 mL/min (70-130); Calcium 9.4 mg/dL (7.8-10.44); Carbon Dioxide 25 mmol/L (22-29); Chloride 107 mmol/L (98-107); Estimated GFR 113; Globulin 2.9 g/dL (2.4-3.5); Glucose 94 mg/dL (70-105); Potassium 4.6 mmol/L (3.5-5.1); Protein, Total 7.6 g/dL (6.0-8.3); Sodium 140 mmol/L (136-145)
[2022-05-08 13:33] LABS: Lipase 37 U/L (8-78)
== END 2022-05-08 16:16 | disposition home or self-care (01) ==
LOC: ERS 12:22
DX: R07.9 Chest pain, unspecified (principal)
CPT/HCPCS: 36415; 71045; 71046; 80053; 83690; 83735; 84484; 85025; 85379; 93005

== ENCOUNTER 2023-08-18 12:57 | Emergency (ER) | payer SELFPAY ==
[2023-08-18 13:48] LABS: #Basophils 0.04 10x3/uL (0.0-0.2); #Eosinphils Less than 0.03 10x3/uL (0.0-0.7); %Basophils 0.6 % (0.0-1.0); %Eosinophils 0.3 % (0.0-10.0); %Lymphocytes 33.2 % (21.0-51.0); %Monocytes 6.9 % (0.0-10.0); %Neutrophils 58.7 % (42.0-75.0); Hematocrit 42.7 % (42.0-52.0); Hemoglobin 14.7 g/dL (14.0-18.0); Mean Corpuscular HGB CONC 34.4 g/dL (32.0-36.0); Mean Corpuscular Hemoglobin 30.9 pg (27.0-31.0); Mean Corpuscular Volume 89.7 fL (78.0-98.0); Mean Platelet Volume 11.6 fL (7.4-10.4); Platelet Count 244 10x3/uL (130-400); RBC Distribution Width 12.4 % (11.5-14.5); Red Blood Cell (RBC) Count 4.76 mill/uL (4.70-6.10)
[2023-08-18 14:04] LABS: ALT (SGPT) 34 U/L (8-55); AST (SGOT) 20 U/L (5-34); Acetaminophen Less than 10 mcg/mL (10.0-30.0); Alcohol Less than 10.0 mg/dL (Less than 10); Alkaline Phosphatase 70 U/L (40-110); Anion Gap 12 mmol/L (10-20); BUN (Urea Nitrogen) 12 mg/dL (8.9-20.6); Bilirubin, Total 0.6 mg/dL (0.2-1.2); Calc. Creatinine Clearance 0 mL/min (70-130); Calcium 9.2 mg/dL (7.8-10.44); Carbon Dioxide 26 mmol/L (22-29); Chloride 106 mmol/L (98-107); Estimated GFR 103; Globulin 3.4 g/dL (2.4-3.5); Glucose 95 mg/dL (70-105); Potassium 3.8 mmol/L (3.5-5.1); Protein, Total 7.4 g/dL (6.0-8.3); Salicylate Less than 8.0 mg/dL (15.0-30.0); Sodium 140 mmol/L (136-145)
[2023-08-18 14:08] LABS: Troponin I Less than 0.010 ng/mL (< 0.028)
== END 2023-08-18 15:19 | disposition home or self-care (01) ==
LOC: ERS 12:57
DX: R00.2 Palpitations (principal); M72.2 Plantar fascial fibromatosis; M75.22 Bicipital tendinitis, left shoulder
CPT/HCPCS: 36416; 71045; 80053; 80307; 84484; 85025; 93005; 94760

== ENCOUNTER 2024-12-04 19:00 | Emergency (ER) | payer OTHER ==
[2024-12-04 22:04] LABS: ALT (SGPT) 66 U/L (Less than 45); AST (SGOT) 32 U/L (11-34); Albumin 4.3 g/dL (3.1-4.5); Alkaline Phosphatase 67 U/L (40-110); Anion Gap 17 mmol/L (10-20); BUN (Urea Nitrogen) 15 mg/dL (8.9-20.6); Bilirubin, Total 0.4 mg/dL (0.3-1.2); CK (CPK) 145 U/L (30-200); Calc. Creatinine Clearance 0 mL/min (70-130); Calcium 9.2 mg/dL (7.8-10.44); Carbon Dioxide 24 mmol/L (22-29); Chloride 108 mmol/L (98-107); Globulin 3.1 g/dL (2.4-3.5); Glucose 94 mg/dL (70-105); Lipase 30 U/L (8-78); Magnesium 2.2 mg/dL (1.6-2.6); Potassium 4.0 mmol/L (3.5-5.1); Sodium 145 mmol/L (136-145)
[2024-12-04 22:06] LABS: #Basophils 0.04 10x3/uL (0.0-0.2); #Eosinophils 0.03 10x3/uL (0.0-0.7); #Monocytes 0.68 10x3/uL (0.11-0.59); #Neutrophils 4.98 10x3/uL (1.40-6.50); %Basophils 0.5 % (0.0-1.0); %Eosinophils 0.4 % (0.0-10.0); %Lymphocytes 32.0 % (21.0-51.0); %Monocytes 8.0 % (0.0-10.0); %Neutrophils 58.9 % (42.0-75.0); Hematocrit 40.6 % (42.0-52.0); Hemoglobin 13.6 g/dL (14.0-18.0); Mean Corpuscular Hemoglobin 30.8 pg (27.0-31.0); Mean Corpuscular Volume 92.1 fL (78.0-98.0); Platelet Count 287 10x3/uL (130-400); Red Blood Cell (RBC) Count 4.41 mill/uL (4.70-6.10); White Blood Cell (WBC) Count 8.45 10x3/uL (4.8-10.8)
[2024-12-04] MEDS ORDERED: Ketorolac Tromethamine 30 MG (1 mL) VIAL ONE (22:36)
== END 2024-12-05 00:52 | disposition home or self-care (01) ==
LOC: ERS 19:00
DX: R07.9 Chest pain, unspecified (principal); Z87.891 Personal history of nicotine dependence
CPT/HCPCS: 71045; 80053; 82550; 83690; 83735; 83880; 84484; 85025; 93005; 96374; J1885